=== PATIENT | male | born 1970 | race Caucasian/White ===

== ENCOUNTER 2020-06-09 13:51 | Emergency (ER) | payer BC ==
[~2020-06-09] VITALS: Ht 172.7 cm; Wt 120.5 kg
[2020-06-09 14:14] VITALS: BP 120/82
[2020-06-09] MEDS ORDERED: BACDS PO (14:30)
[2020-06-09] MEDS ORDERED: TETanus/Pertussis (Acell)/Diphther VAC/PF (Tdap-Adult) 0.5ml syringe IMVAC ONE (14:45)
[2020-06-09] MEDS ORDERED: sulfamethoxazole/trimethoprim DS (800/160mg) tablet PO ONE (14:45)
== END 2020-06-09 14:57 | disposition home or self-care (01) ==
LOC: ER 13:52
DX: S40.812A Abrasion of left upper arm, initial encounter (principal); S40.811A Abrasion of right upper arm, initial encounter; S80.812A Abrasion, left lower leg, initial encounter; S80.811A Abrasion, right lower leg, initial encounter; S10.91XA Abrasion of unspecified part of neck, initial encounter; S00.91XA Abrasion of unspecified part of head, initial encounter; S30.810A Abrasion of lower back and pelvis, initial encounter; Z79.899 Other long term (current) drug therapy; Z98.890 Other specified postprocedural states; V09.9XXA Pedestrian injured in unspecified transport accident, initial encounter; Y93.89 Activity, other specified; Y92.89 Other specified places as the place of occurrence of the external cause; Y99.8 Other external cause status
CPT/HCPCS: 90471; 90715; 99283